=== PATIENT | female | born 1980 | race Two or more races ===

== ENCOUNTER 2018-11-17 22:44 | Emergency (ER) | payer OTHER ==
[~2018-11-17] VITALS: Ht 170.2 cm; Wt 88.5 kg
[2018-11-17] MEDS ORDERED: CAPTOPRIL25 MG (23:11)
[2018-11-18] MEDS ORDERED: LISINOPRIL5 MG PO (01:23)
[2018-11-18] MEDS ORDERED: VISTARIL25 MG PO (01:23)
== END 2018-11-18 02:00 | disposition home or self-care (01) ==
LOC: ER 22:44
DX: I16.0 Hypertensive urgency (principal); I10 Essential (primary) hypertension; R51 Headache